=== PATIENT | female | born 1945 ===

== ENCOUNTER 2017-09-02 08:37 | Emergency (ER) | payer OTHER ==
[~2017-09-02] VITALS: Ht 157.5 cm; Wt 72.6 kg
[2017-09-02] MEDS ORDERED: TOPROL XL50 M1 (09:24)
[2017-09-02] MEDS ORDERED: NORVASC5 MG (09:25)
[2017-09-02] MEDS ORDERED: GASTRACE CAPSU1 EACH (09:25)
[2017-09-02] MEDS ORDERED: LOSARTAN POTASS50 MG (09:26)
[2017-09-02] MEDS ORDERED: PRESERVISION A1 EAC3 (09:27)
== END 2017-09-02 13:12 | disposition home or self-care (01) ==
LOC: ER 08:37
DX: I10 Essential (primary) hypertension (principal)